=== PATIENT | female | born 1945 | race Two or more races ===

== ENCOUNTER 2022-12-27 22:22 | Inpatient (IN) | payer OTHER ==
[~2022-12-27] VITALS: Ht 162.6 cm; Wt 100.0 kg
[2022-12-27 23:50] LABS: EOSINOPHILS % 0.3 % (0.0-5.0); HEMATOCRIT. 41.1 % (36.0-48.0); HEMOGLOBIN. 13.6 g/dL (12.0-16.0); LYMPHOCYTES % 11.6 % (20.0-50.0); MEAN CORPUSCULAR HEMOGLOBIN 28.1 pg (28.0-32.0); MEAN CORPUSCULAR HGB CONC 33.2 g/dL (31.0-37.0); MEAN CORPUSCULAR VOLUME 84.8 fL (81.0-99.0); MEAN PLATELET VOLUME 8.3 fl (7.4-10.4); MONOCYTES % 5.2 % (2.0-8.0); NEUTROPHILS % 81.9 % (40.0-76.0); PLATELET 242 x1000/uL (130-400); RED BLOOD CELL COUNT 4.85 mill/uL (4.2-5.4)
[2022-12-27 23:55] LABS: CHLORIDE 109 mEq/L (98-107); INDEX HEMOLYSI 3 (1-3); INDEX ICTERIC 1 (1-4); INDEX LIPEMIC 1 (1-3); POTASSIUM 3.5 mEq/L (3.5-5.1); SODIUM 142 mEq/L (136-145)
[2022-12-28 00:07] LABS: ALANINE AMINOTRANSFERASE 12 IU/L (13-61); ALBUMIN 3.6 g/dL (3.4-5.0); ASPARTATE AMINOTRANSFERASE 23 IU/L (15-37); BILIRUBIN TOTAL 0.7 mg/dL (0.1-1.0); CALCIUM 9.8 mg/dL (8.5-10.1); CARBON DIOXIDE 25 mEq/L (21-32); CREATININE 1.7 mg/dL (0.6-1.3); ETHANOL BLOOD < 10 mg/dL (<10); GLUCOSE 119 mg/dL (70-105); PROTEIN TOTAL 6.9 g/dL (6.0-8.3); TROPONIN I HIGH SENSITIVITY 18 ng/L (<54); UREA NITROGEN BLOOD 30 mg/dL (7-21)
[2022-12-28] MEDS ORDERED: LORAZEPAM 2MG/ML CPJ IV PRN ×2 (05:45→09:00)
[2022-12-28] MEDS ORDERED: SODIUM CHLORIDE 0.9% 1,000 ML IV SCH (05:45)
[2022-12-28] MEDS ORDERED: HYDR-4135 PO (05:46)
[2022-12-28] MEDS ORDERED: SPIR25TA6 PO (05:47)
[2022-12-28] MEDS ORDERED: LIP40 PO (05:47)
[2022-12-28] MEDS ORDERED: LISI40TA13 PO (05:48)
[2022-12-28 08:00] VITALS: BP 120/94; PULSE 116; RESP 18; TEMP 97.5
[2022-12-28] MEDS ORDERED: ACETAMINOPHEN 325MG TABLET PO PRN (09:00)
[2022-12-28] MEDS ORDERED: ONDANSETRON HCL 4MG/2ML INJ IV PRN (09:00)
[2022-12-28] MEDS ORDERED: DOCUSATE SODIUM 100MG CAPSULE PO PRN (09:00)
[2022-12-28] MEDS ORDERED: ENOXAPARIN 40MG/0.4ML SYR SUBCUT SCH (09:00)
[2022-12-28] MEDS ORDERED: ASPIRIN 81MG EC TABLET PO SCH (09:00)
[2022-12-28] MEDS ORDERED: CLONIDINE 0.1MG TABLET PO PRN (09:00)
[2022-12-28] MEDS ORDERED: MORPHINE SULFATE 2 MG/ML CPJ (NOT FOR IM USE) IV PRN (09:00)
[2022-12-28] MEDS ORDERED: IPRATROPIUM/ALBUTEROL 0.5-3(2.5)MG/3ML NEB NEB PRN (09:00)
[2022-12-28] MEDS ORDERED: HYDROCODONE/ACETAMINOPHEN 5/325MG TABLET PO PRN (09:00)
[2022-12-28] MEDS ORDERED: ASPIRIN 81MG TABLET PO SCH (10:00)
[2022-12-28 12:00] VITALS: BP 107/47; PULSE 94; RESP 18; TEMP 97.7
[2022-12-28 16:00] VITALS: BP 106/88; PULSE 53; RESP 18; TEMP 97.8
[2022-12-28] MEDS ORDERED: NALOXONE HCL 0.4MG/ML VIAL IV PRN (17:00)
[2022-12-28] MEDS ORDERED: ATORVASTATIN CALCIUM 40MG TABLET PO SCH (18:00)
[2022-12-28 20:00] VITALS: BP 119/98; PULSE 76; RESP 20; TEMP 97.5
[2022-12-28 23:48] LABS: CREATINE KINASE MB FRACTION 2.9 ng/mL (0.5-3.6)
[2022-12-28 23:56] VITALS: BP 127/91; PULSE 75; TEMP 97.9; O2SAT 95
== END 2022-12-29 01:30 | disposition short-term general hospital (02) | DRG 314 ==
LOC: ER 22:22 → 7WST 12-28 01:35 → ER 12-28 04:50
PROVIDERS: ADMIT Internal Medicine Nephrology; ATTEND Internal Medicine Nephrology
DX: I95.9 Hypotension, unspecified (principal); G93.41 Metabolic encephalopathy; N17.9 Acute kidney failure, unspecified; F02.80 Dementia in other diseases classified elsewhere, unspecified severity, without behavioral disturbance, psychotic disturbance, mood disturbance, and anxiety; G30.9 Alzheimer's disease, unspecified; E78.00 Pure hypercholesterolemia, unspecified; I10 Essential (primary) hypertension; E11.649 Type 2 diabetes mellitus with hypoglycemia without coma; Z79.4 Long term (current) use of insulin
CPT/HCPCS: 36415; 80053; 80320; 82550; 82553; 82962; 84484; 85025; 99285; J1650; J2060; J7030; G0480

== ENCOUNTER 2023-01-19 17:17 | Emergency (ER) | payer OTHER ==
[~2023-01-19] VITALS: Ht 167.6 cm; Wt 100.0 kg
[~2023-01-19 17:17] MED LIST: HYDR-4135 PO; LIP40 PO; LISI40TA13 PO; SPIR25TA6 PO
[2023-01-19 17:24] VITALS: O2SAT 98
[2023-01-19 19:47] LABS: BASOPHILS % 1.1 % (0.0-2.0); DIFFERENTIAL COMMENT 1; EOSINOPHILS % 0.7 % (0.0-5.0); HEMATOCRIT. 48.2 % (36.0-48.0); HEMOGLOBIN. 15.5 g/dL (12.0-16.0); LYMPHOCYTES % 15.3 % (20.0-50.0); MEAN CORPUSCULAR HEMOGLOBIN 28.3 pg (28.0-32.0); MEAN CORPUSCULAR HGB CONC 32.3 g/dL (31.0-37.0); MEAN CORPUSCULAR VOLUME 87.6 fL (81.0-99.0); MEAN PLATELET VOLUME 8.8 fl (7.4-10.4); MONOCYTES % 5.7 % (2.0-8.0); NEUTROPHILS % 77.2 % (40.0-76.0); PLATELET 260 x1000/uL (130-400); RED CELL DISTRIBUTION WIDTH 15.6 % (11.6-14.6); WHITE BLOOD COUNT 9.5 x1000/uL (4.5-11.0)
[2023-01-19 20:03] LABS: CHLORIDE 109 mEq/L (98-107); INDEX HEMOLYSI 1 (1-3); INDEX ICTERIC 1 (1-4); INDEX LIPEMIC 1 (1-3); SODIUM 146 mEq/L (136-145)
[2023-01-19 20:15] LABS: ALANINE AMINOTRANSFERASE 16 IU/L (13-61); ALBUMIN 3.9 g/dL (3.4-5.0); ASPARTATE AMINOTRANSFERASE 21 IU/L (15-37); BILIRUBIN TOTAL 1.1 mg/dL (0.1-1.0); CALCIUM 10.2 mg/dL (8.5-10.1); CARBON DIOXIDE 28 mEq/L (21-32); CREATININE 1.3 mg/dL (0.6-1.3); GLUCOSE 128 mg/dL (70-105); NT PRO B-TYPE NATRIURETIC PEP 84 pg/mL (5-125); PROTEIN TOTAL 7.5 g/dL (6.0-8.3); TROPONIN I HIGH SENSITIVITY 22 ng/L (<54); UREA NITROGEN BLOOD 24 mg/dL (7-21)
[2023-01-19 20:20] LABS: POTASSIUM 2.7 mEq/L (3.5-5.1)
[2023-01-19] MEDS ORDERED: MAGNESIUM 1 G PREMIX 100 ML IV ONE (20:45)
[2023-01-19] MEDS ORDERED: POTASSIUM BICARB/CIT ACID 25 MEQ TABLET.EFF PO ONE (20:45)
[2023-01-19 22:52] LABS: CLARITY URINE TURBID (CLEAR); COLOR URINE DARK YELLOW (YELLOW); GLUCOSE URINE NEGATIVE (NEGATIVE); KETONES URINE 1+ (NEGATIVE); LEUKOCYTE ESTERASE URINE 3+ (NEGATIVE); NITRITE URINE POSITIVE (NEGATIVE); OCCULT BLOOD URINE 2+ (NEGATIVE); PH URINE 5.5 (4.5-8.0); PROTEIN URINE 2+ (NEGATIVE); SPECIFIC GRAVITY URINE 1.019 (1.005-1.030)
[2023-01-19 23:21] LABS: BACTERIA URINE 4+
[2023-01-19 23:22] LABS: SQUAMOUS EPITHELIAL CELL URINE 2+ /lpf (RARE/1+)
[2023-01-19 23:23] LABS: RBC URINE 15-25 /hpf (0-2); WBC URINE TNTC /hpf (0-2)
[2023-01-20] VITALS: BP 110/44; PULSE 78; RESP 12; TEMP 98
== END 2023-01-20 01:01 | disposition short-term general hospital (02) ==
LOC: ER 17:17
DX: R55 Syncope and collapse (principal); G93.40 Encephalopathy, unspecified; E87.6 Hypokalemia; E78.00 Pure hypercholesterolemia, unspecified; I10 Essential (primary) hypertension
CPT/HCPCS: 99285; 96365; 70450; 71045; 96366; 80053; 81003; 83880; 85025; 87086; 87186; 84484; 87077; 36415; 93005; 82962; J3475; A4315